=== PATIENT | female | born 1965 | race Caucasian/White ===

== ENCOUNTER 2020-08-09 21:55 | Emergency (ER) | payer SELFPAY ==
[~2020-08-09] VITALS: Ht 160 cm; Wt 79.4 kg
[2020-08-09] MEDS ORDERED: DIPHENHYDRAMINE HCL INJ 50 MG/ML VIAL IV ONE (23:45)
[2020-08-09] MEDS ORDERED: METOCLOPRAMIDE HCL 10 MG/2ML VIAL IV ONE (23:45)
[2020-08-09] MEDS ORDERED: SODIUM CHLORIDE 0.9% 1000ML 1,000 ML IV SCH (23:45)
[2020-08-09] MEDS ORDERED: MECLIZINE HCL 12.5 MG TAB PO ONE (23:45)
--- NOTE | 2020-08-10 00:28 | Diagnostic Imaging Report ---
EXAMINATION: Head CT without contrast. HISTORY: 55-year-old female with dizziness and hypertension COMPARISON: None available TECHNIQUE: Helical axial images of the head were obtained. Reformatted coronal and sagittal images from the axial data. Dose modulation, iterative reconstruction, and/or weight based adjustment of the mA/kV was utilized to reduce the radiation dose to as low as reasonably achievable. FINDINGS: Parenchyma: 1. No abnormal densities. Tiny physiologic/age-related calcifications in the bilateral globi pallidi. 2. No mass or hemorrhage. No CT evidence of acute territorial vascular insult. Extra-axial spaces:No abnormal density. No extra-axial fluid collections Brain volume: Normal for age. Ventricles: No hydrocephalus or displacement. Arteries: No density suggestive of thrombus. Dural sinuses: No abnormal density. Foramen magnum: No mass, Chiari malformation, or basilar invagination. Sella: No obvious mass. Paranasal/mastoid sinuses: Imaged portions unremarkable. Skull/Scalp: No lytic or blastic lesions. No fractures. IMPRESSION: Normal head CT. Signed by: Dr. Mary Garcia M.D. on 08/10/2020 12:25 AM
[2020-08-10 00:29] LABS: BASOPHILS # (AUTO) 0.1 (0.0-0.1); BASOPHILS % 0.7 % (0.0-1.0); EOSINOPHILS # (AUTO) 0.1 (0.0-0.4); EOSINOPHILS % 0.6 % (0.0-6.0); HEMATOCRIT 40.8 % (34.2-44.1); LYMPHOCYTES # (AUTO) 3.5 (1.0-3.2); LYMPHOCYTES % 26.7 % (18.0-39.1); MEAN CORPUSCULAR HEMOGLOBIN 28.1 pg (28-32); MEAN CORPUSCULAR HGB CONC 34.3 g/dL (31-35); MEAN CORPUSCULAR VOLUME 81.9 fL (81-99); MONOCYTES # (AUTO) 0.6 (0.2-0.8); MONOCYTES % 4.9 % (4.4-11.3); NEUTROPHILS # (AUTO) 8.7 (2.1-6.9); NEUTROPHILS % 66.7 % (38.7-80.0); PLATELET COUNT 226 x10e3/uL (140-360); RED BLOOD COUNT 4.98 x10e6/uL (3.6-5.1); RED CELL DISTRIBUTION WIDTH 11.9 % (11.7-14.4)
[2020-08-10] MEDS ORDERED: SODIUM CHLORIDE 0.9% 1000ML 1,000 ML IV STA (00:35)
[2020-08-10 01:01] LABS: ALANINE AMINOTRANSFERASE 24 IU/L (0-55); ALBUMIN 4.6 g/dL (3.5-5.0); ALBUMIN/GLOBULIN RATIO 1.4 (0.8-2.0); ALKALINE PHOSPHATASE 137 IU/L (40-150); ANION GAP 15.1 mmol/L (8-16); BLOOD UREA NITROGEN 14 mg/dL (7-26); BUN/CREATININE RATIO 21 (6-25); CALCIUM 8.9 mg/dL (8.4-10.2); CARBON DIOXIDE 23 mmol/L (22-29); CHLORIDE 97 mmol/L (98-107); CREATINE KINASE 144 IU/L (29-168); CREATININE, SERUM 0.68 mg/dL (0.57-1.11); EST GLOMERULAR FILTRATION RATE > 60 ML/MIN (60-); GLUCOSE 102 mg/dL (74-118); POTASSIUM 4.1 mmol/L (3.5-5.1); SODIUM 131 mmol/L (136-145)
--- NOTE | 2020-08-10 01:08 | Emergency Department Note ---
History of Present Illnes History of Present Illness Chief Complaint: Hypertension History of Present Illness This is a 55 year old female arrived to the ED with complaints of dizziness associated nausea and worse with motion. Patient also complaining of marked esophageal be with minimal relief from omeprazole. Chief Complaint Comment 55 Y OLD FEMALE PRESENTS TO THE ED WITH NAUSEA AND DIZZINESS X 8 DAYS. DIZZINESS IS PROGRESSIVELY WORSE UPON MOVEMENT. PATIENT STARTED A NEW BLOOD PRESSURE MEDICATION RECENTLY AND IS CONCERED ABOUT B/P WELL. PATIENT IS IN NO DISTRESS, NEUROLOGICAL EXAM IS INTACT. Historian: Patient Arrival Mode: Car Onset (how long ago): day(s) Severity: mild Duration (how long): day(s) Timing of current episode: intermittent Progression: waxing and waning Chronicity: new Relieving factors: none Past Medical/Family History Physician Review I have reviewed the patient's past medical and family history. Any updates have been documented here. Past Medical History Recent Fever: No Clinical Suspicion of Infectio: No New/Unexplained Change in Ment: No Other Medical History: LUPUS HTN GASTRITIS Past Surgical History: Cholecysctectomy Social History Smoking Cessation: Never Smoker Counseling Performed: No Alcohol Use: None Any Illegal Drug Use: No Other Any Pre-Existing Lines (PICC,: No Review of Systems Review of Systems Constitutional: Reports as per HPI EENTM: Reports no symptoms Cardiovascular: Reports no symptoms Respiratory: Reports no symptoms Gastrointestinal: Reports no symptoms Genitourinary: Reports no symptoms Musculoskeletal: Reports no symptoms Integumentary: Reports no symptoms Neurological: Reports as per HPI, Reports other (dizziness) Psychological: Reports no symptoms Endocrine: Reports no symptoms Hematological/Lymphatic: Reports no symptoms Physical Exam Related Data Allergies: Coded Allergies: aspirin (Verified Allergy, Severe, ANAPHYLAXIS, 08/09/20) Triage Vital Signs Vital Signs Date Time Temp Pulse Resp B/P (MAP) Pulse Ox O2 Delivery O2 Flow Rate FiO2 08/09/20 23:03 98.2 84 20 183/88 99 08/10/20 00:43 Room Air Vital signs reviewed: Yes Physical Exam CONSTITUTIONAL Constitutional: Present well-developed, Present well-nourished HENT HENT: Present normocephalic, Present atraumatic, Present oropharynx clear/moist, Present nose normal HENT L/R: Present left ext ear normal, Present right ext ear normal EYES Eyes: Reports PERRL, Reports conjunctivae normal NECK Neck: Present ROM normal PULMONARY Pulmonary: Present effort normal, Present breath sounds normal CARDIOVASCULAR Cardiovascular: Present regular rhythm, Present heart sounds normal, Present capillary refill normal, Present normal rate GASTROINTESTINAL Abdominal: Present soft, Present nontender, Present bowel sounds normal GENITOURINARY Genitourinary: Present exam deferred SKIN Skin: Present warm, Present dry MUSCULOSKELETAL Musculoskeletal: Present ROM normal NEUROLOGICAL Neurological: Present alert, Present oriented x 3, Present no gross motor or se nsory deficits PSYCHOLOGICAL Psychological: Present mood/affect normal, Present judgement normal Results Laboratory Result Diagram: 08/10/20 0020 08/10/20 0020 Laboratory Laboratory Tests Test 08/10/20 00:20 White Blood Count 12.99 x10e3/uL (4.8-10.8) Red Blood Count 4.98 x10e6/uL (3.6-5.1) Hemoglobin 14.0 g/dL (12.0-16.0) Hematocrit 40.8 % (34.2-44.1) Mean Corpuscular Volume 81.9 fL (81-99) Mean Corpuscular Hemoglobin 28.1 pg (28-32) Mean Corpuscular Hemoglobin Concent 34.3 g/dL (31-35) Red Cell Distribution Width 11.9 % (11.7-14.4) Platelet Count 226 x10e3/uL (140-360) Neutrophils (%) (Auto) 66.7 % (38.7-80.0) Lymphocytes (%) (Auto) 26.7 % (18.0-39.1) Monocytes (%) (Auto) 4.9 % (4.4-11.3) Eosinophils (%) (Auto) 0.6 % (0.0-6.0) Basophils (%) (Auto) 0.7 % (0.0-1.0) Neutrophils # (Auto) 8.7 (2.1-6.9) Lymphocytes # (Auto) 3.5 (1.0-3.2) Monocytes # (Auto) 0.6 (0.2-0.8) Eosinophils # (Auto) 0.1 (0.0-0.4) Basophils # (Auto) 0.1 (0.0-0.1) Absolute Immature Granulocyte (auto 0.05 x10e3/uL (0-0.1) Sodium Level 131 mmol/L (136-145) Potassium Level 4.1 mmol/L (3.5-5.1) Chloride Level 97 mmol/L (98-107) Carbon Dioxide Level 23 mmol/L (22-29) Anion Gap 15.1 mmol/L (8-16) Blood Urea Nitrogen 14 mg/dL (7-26) Creatinine 0.68 mg/dL (0.57-1.11) Estimat Glomerular Filtration Rate > 60 ML/MIN (60-) BUN/Creatinine Ratio 21 (6-25) Glucose Level 102 mg/dL (74-118) Calcium Level 8.9 mg/dL (8.4-10.2) Total Bilirubin 0.7 mg/dL (0.2-1.2) Aspartate Amino Transf (AST/SGOT) 21 IU/L (5-34) Alanine Aminotransferase (ALT/SGPT) 24 IU/L (0-55) Alkaline Phosphatase 137 IU/L (40-150) Creatine Kinase 144 IU/L (29-168) Creatine Kinase MB 2.20 ng/mL (0-5.0) Troponin I 0.019 ng/mL (0-0.300) Total Protein 8.0 g/dL (6.5-8.1) Albumin 4.6 g/dL (3.5-5.0) Globulin 3.4 g/dL (2.3-3.5) Albumin/Globulin Ratio 1.4 (0.8-2.0) Lab results reviewed: Yes Imaging Imaging results reviewed: Yes Assessment & Plan Medical Decision Making MDM This patient presents with dizziness, most consistent with a peripheral cause, likely vertigo. Differential diagnoses includes: BPPV versus labrynthitis. No red flag features for central vertigo to include gradual onset, vertical/bidirectional or nonfatigable nystagmus, focal neurologic findings on exam (including inability to ambulate). Presentation not consistent with an acute [employer] infection, vertebral basilar artery insufficiency, cerebellar hemorrhage or infarction, intracranial mass or bleed, temporal lobe epilepsy, multiple sclerosis, trauma, complex migraine headache. Other acute, emergent causes of vertigo are unlikely given at this time. No indication for head imaging at this time. Plan: meclizine, supportive care, serial reassessment Reassessment Reassessment Patient reported improvement meclizine, also with Maalox for heartburn. Patient was discharged.. Assessment & Plan Final Impression: (1) Vertigo Depart Disposition: HOME, SELF-CARE Last Vital Signs Date Time Temp Pulse Resp B/P (MAP) Pulse Ox O2 Delivery O2 Flow Rate FiO2 08/10/20 00:43 98.4 102 18 169/99 100 Room Air Home Meds Active Scripts Mag Hydrox/Al Hydrox/Simeth (MAALOX MAXIMUM STRENGTH SUSP) 355 Ml Oral.susp, 15 ML PO Q6H PRN for ABDOMINAL PAIN, #120 ML Prov:DOREEN COLLADO DO 08/10/20 Meclizine Hcl (MECLIZINE HCL) 12.5 Mg Tablet, 25 MG PO DAILY PRN for DIZZINESS, #20 TAB Prov:DOREEN COLLADO DO 08/10/20 Medications in the ED Sodium Chloride 1,000 ml @ 100 mls/hr Q10H IV ; Start 08/09/20 at 23:45; Stop 09/08/20 at 23:44 Meclizine HCl 25 mg ONCE ONCE PO Last administered on 08/10/20at 00:28; Admin Dose 25 MG; Start 08/09/20 at 23:45; Stop 08/09/20 at 23:48; Status DC Metoclopramide HCl 10 mg ONCE ONCE IV Last administered on 08/10/20at 00:28; Admin Dose 10 MG; Start 08/09/20 at 23:45; Stop 08/09/20 at 23:59; Status DC Diphenhydramine HCl 25 mg NOW ONCE IV Last administered on 08/10/20at 00:28; Admin Dose 25 MG; Start 08/09/20 at 23:45; Stop 08/09/20 at 23:59; Status DC Sodium Chloride 1,000 ml @ 999 mls/hr Q1H1M STAT IV Last administered on 08/10/20at 00:37; Admin Dose 999 MLS/HR; Start 08/10/20 at 00:35; Stop 08/10/20 at 01:35 DOREEN COLLADO DO Aug 10, 2020 01:08
[2020-08-10] MEDS ORDERED: MECLIZINE HCL12.5 MG PO (01:12)
[2020-08-10] MEDS ORDERED: MAALOX MAXIMUM355 ML PO (01:12)
[2020-08-10] MEDS ORDERED: MAGNESIUM/ALUMINUM/SIMETHICONE 30 ML UDC PO ONE (01:15)
[2020-08-10] MEDS ORDERED: MAGNESIUM/ALUMINUM/SIMETHICONE 30 ML UDC ONE (01:20)
[2020-08-10 03:00] VITALS: BP 147/73
--- OUTSIDE RECORDS SUMMARY | 2020-08-10 03:07 | XMS REPORT | Continuity of Care Document ---
Author Author [facility] t Organization [facility] Address [address] [place] [address] Phone Unavailable Care Team Providers Care [employer] Teacher Name Role Phone Stella COLLADO Attphystella Unavailable Problems This patient has no known problems. Allergies, Adverse Reactions, Alerts This patient has no known allergies or adverse reactions. Medications This patient has no known medications. Procedures This patient has no known procedures. Results Test Description Test Time Test Comments Results Result Comments Source CT BRAIN WO 2020-08-10 00:19:00 [facility] : 1965 Sex: F [facility] [address] [place] [address] Patient Name: HARESH ANGELES MR #: [id number] : 1965 Age/Sex: 55/F Req #: [id number] [facility] Physician: Ordered by: DOREEN COLLADO DO Report #: [id number] Location: ER Room/Bed: Procedure: [id number] CT/CT BRAIN WO Exam Date: 08/09/20 Exam Time: 2067 REPORT STATUS: Signed EXAMINATION: Head CT without contrast. HIS TORY: 55-year-old female with dizziness and hypertension COMPARISON: None available TECHNIQUE: Helical axial images of the head were obtained. Reformatted coronal and sagittal images from the axial data. Dose modulation, iterative reconstruction, and/or weight based adjustment of the mA/kV was utilized to reduce the radiation dose to as low as reasonably achievable. FINDINGS: Parenchyma: 1. No abnormal densities. Tiny physiologic/age-related calcifications in the bilateral globi pallidi. 2. No mass or hemorrhage. No CT evidence of acute territorial vascular insult. Extra-axial spaces:No abnormal density. No extra-axial fluid collections Brain volume: Normal for age. Ventricles: No hydrocephalus or displacement. Arteries: No density suggestive of thrombus. Dural sinuses: No abnormal density. Foramen magnum: No mass, Chiari malformation, or basilar invagination. Sella: No obvious mass. Paranasal/mastoid sinuses: Imaged portions unremarkable. Skull/Scalp: No lytic or blastic lesions. No fractures. IMPRESSION: Normal head CT. Signed by: Dr. Rolanda Garcia M.D. on 08/10/2020 12:25 AM Dictated By: ROLANDA GARCIA MD Transcribed By: DARREN on 08/10/2024 COPY TO: DOREEN COLLADO DO
== END 2020-08-10 02:50 | disposition home or self-care (01) ==
LOC: ER 08-10 02:00
DX: R42 Dizziness and giddiness (principal); R11.0 Nausea; M32.9 Systemic lupus erythematosus, unspecified; I10 Essential (primary) hypertension
CPT/HCPCS: 36415; 70450; 80053; 82550; 82553; 84484; 85025; 99284; J1200; J2765; J7030; J8597